=== PATIENT | female | born 1960 | race Caucasian/White ===

== ENCOUNTER → 2017-08-23 | Outpatient (CLI) | payer OTHER ==
[2017-08-23 12:11] LABS: EKG EKG PERFORMED
[2017-08-23 12:37] LABS: CH 32.7; CHCM 32.5; HCT 44.1 % (34.0-46.0); HGB 14.3 gm/dL (11.4-16.0); MCH 32.8 pg (25.0-35.0); MCHC 32.3 g/dL (31.0-37.0); MCV 101.4 fL (80.0-100.0); Macrocytosis Slight; Mean Platelet Volume 7.2; RBC 4.35 m/uL (3.80-5.40); RDW 15.7 % (11.5-15.5); WBC 6.9 k/uL (3.8-10.6)
[2017-08-23 12:42] LABS: ALT 28 U/L (9-52); AST 18 U/L (14-36); Alkaline Phosphatase 89 U/L (38-126); Anion Gap 9 mmol/L; Blood Urea Nitrogen 13 mg/dL (7-17); Calcium 9.7 mg/dL (8.4-10.2); Carbon Dioxide 26 mmol/L (22-30); Chloride 106 mmol/L (98-107); Glucose 90 mg/dL (74-99); Non-African American GFR(MDRD) >60 (>60 ml/min/1.73 sqM); Potassium 4.1 mmol/L (3.5-5.1); Sodium 141 mmol/L (137-145); Total Bilirubin 0.6 mg/dL (0.2-1.3); Total Protein 7.9 g/dL (6.3-8.2)
[2017-08-23 13:05] LABS: Partial Thromboplastin Time 25.7 sec (22.0-30.0); Prothrombin Time 10.4 sec (9.0-12.0)
[2017-08-23 13:28] LABS: Amorphous Sediment,Urine Rare /hpf; Appearance,Urine Cloudy (Clear); Bilirubin,Urine Negative (Negative); Glucose,Urine (UA) Negative (Negative); Ketones,Urine Negative (Negative); Leukocyte Esterase,Urine Large (Negative); Mucus,Urine Occasional /hpf; Nitrite,Urine Negative (Negative); PH, Urine 5.5 (5.0-8.0); Particle Count 7828; Protein,Urine Trace (Negative); RBC,Urine 3 /hpf (0-5); Specific Gravity,Urine 1.022 (1.001-1.035); Squamous Epithelial Cell,Urine 2 /hpf (0-4); UA Billing (MACRO vs. MICRO) MICRO; Urobilinogen,Urine <2.0 mg/dL (<2.0); WBC,Urine 31 /hpf (0-5)
== END | disposition home or self-care (01) ==
LOC: LABPAT 11:37
PROVIDERS: ATTEND Orthopaedic Surgery
DX: Z01.810 Encounter for preprocedural cardiovascular examination (principal); Z01.812 Encounter for preprocedural laboratory examination; Z79.01 Long term (current) use of anticoagulants
CPT/HCPCS: 36415; 80053; 81001; 85027; 85610; 85730; 87070; 93005

== ENCOUNTER 2018-07-28 21:07 | Emergency (ER) | payer OTHER ==
[2018-07-28 21:15] VITALS: PULSE 84; RESP 16; TEMP 98.9
--- NOTE | 2018-07-28 22:00 | ED ---
Abdominal Pain HPI - General Source: EMS Mode of arrival: EMS Limitations: no limitations <Muriel Xiao - Last Filed: 07/28/18 23:28> <Michelle Persaud - Last Filed: 07/29/18 03:07> - General Chief Complaint: Abdominal Pain Stated Complaint: Hernia Time Seen by Provider: 07/28/18 21:29 - History of Present Illness Initial Comments: 58-year-old female patient presents to the emergency department today with a transfer from [facility] for incarcerated abdominal hernia. Patient states that she started having pain around her umbilicus today that is radiating to the left and to the right. The patient states the area felt hard and tender. States that she did present to the emergency department underwent testing and had a CAT scan was found to have an incarcerated hernia and a transfer here for surgical evaluation. Patient states that her pain has improved after receiving medication at the other emergency department. States that leading up to that she had no difficulties with bowel movements, was passing gas, had no vomiting, nausea, fever, or chills. Patient states that she has had the umbilical hernia for a couple of years and has had no problems until today. She denies history of abdominal surgery. Patient denies any recent rash, fever, chills, shortness breath, chest pain, numbness, tingling, dizziness, weakness, hematuria, dysuria, urinary urgency, urinary frequency, headache, visual changes, or any other complaints. (Muriel Xiao) - Related Data Home Medications Medication Instructions Recorded Confirmed Hydrochlorothiazide [Hydrodiuril] 12.5 mg PO QAM 09/10/16 07/28/18 Pravastatin Sodium [Pravachol] 20 mg PO HS 09/10/16 07/28/18 Ranitidine HCl [Zantac] 150 mg PO BID 09/10/16 07/28/18 Ubidecarenone [Co Q-10] 100 mg PO DAILY 09/10/16 07/28/18 Losartan Potassium 50 mg PO QAM 08/27/17 07/28/18 Aspirin [Adult Low Dose Aspirin EC] 81 mg PO DAILY 07/28/18 07/28/18 Allergies Allergy/AdvReac Type Severity Reaction Status Date / Time sulfamethoxazole AdvReac REACTION Verified 07/28/18 22:27 [From Bactrim] WITH METHOTREXATE & FOLIC ACID trimethoprim [From Bactrim] AdvReac REACTION Verified 07/28/18 22:27 WITH METHOTREXATE & FOLIC ACID Review of Systems ROS Other: All systems not noted in ROS Statement are negative. <Muriel Xiao - Last Filed: 07/28/18 23:28> ROS Other: All systems not noted in ROS Statement are negative. <Michelle Persaud - Last Filed: 07/29/18 03:07> ROS Statement: Those systems with pertinent positive or pertinent negative responses have been documented in the HPI. Past Medical History Past Medical History: GERD/Reflux, Hyperlipidemia, Hypertension, Osteoarthritis (OA), Skin Disorder Additional Past Medical History / Comment(s): PSORIASIS (ABD AREA). Past hx. pancreatitis History of Any Multi-Drug Resistant Organisms: None Reported Additional Past Surgical History / Comment(s): bilateral total knees. Clogged sweat gland removed shoulder area?, Past Anesthesia/Blood Transfusion Reactions: No Reported Reaction Past Psychological History: No Psychological Hx Reported Smoking Status: Never smoker Past Alcohol Use History: None Reported Past Drug Use History: None Reported - Past Family History Mother Family Medical History: Cancer, Hypertension, Renal Disease Additional Family Medical History / Comment(s): skn CANCER Father Family Medical History: Hyperlipidemia, Hypertension, Renal Disease <Muriel Xiao - Last Filed: 07/28/18 23:28> General Exam Limitations: no limitations General appearance: alert, in no apparent distress, other (This is a well- developed, well-nourished adult female patient in no acute distress. Vital signs upon presentation are temperature 98.9F, pulse 84, respirations 16, blood pressure 135/70, pulse ox 95% on room air.) ENT exam: Present: normal exam, normal oropharynx, mucous membranes moist Respiratory exam: Present: normal lung sounds bilaterally. Absent: respiratory distress, wheezes, rales, rhonchi, stridor Cardiovascular Exam: Present: regular rate, normal rhythm, normal heart sounds. Absent: systolic murmur, diastolic murmur, rubs, gallop, clicks GI/Abdominal exam: Present: soft, normal bowel sounds, hernia (umbilical). Absent: distended, tenderness, guarding, rebound, rigid Neurological exam: Present: alert, oriented X3, CN II-XII intact Psychiatric exam: Present: normal affect, normal mood Skin exam: Present: warm, dry, intact, normal color. Absent: rash <Muriel Xiao - Last Filed: 07/28/18 23:28> Vital Signs 07/28/18 07/28/18 07/28/18 21:10 22:00 22:10 Temperature 98.9 F Pulse Rate 84 Respiratory 16 Rate Blood Pressure 135/70 131/67 138/72 O2 Sat by Pulse 95 95 95 Oximetry Medical Decision Making - Radiology Data Radiology results: report reviewed <Muriel Xiao - Last Filed: 07/28/18 23:28> <Michelle Persaud - Last Filed: 07/29/18 03:07> - Medical Decision Making 58-year-old female patient presented to the emergency department today as a transfer from [facility] for evaluation of an incarcerated hernia. Physical examination is unremarkable. Abdomen soft and nontender. Did review reports from [facility] which showed possible incarcerated mesenteric fat. Patient currently feeling better at this time. My attending did see and evaluate the patient felt that an emergent consult with surgery is not necessary she can follow-up outpatient. Did discuss this with the patient, shows feel comfortable being discharged at this time. Return parameters discussed in detail. She verbalizes understanding and agrees with this plan. (Muriel Xiao) I personally saw and examined the patient. I reviewed and agree with the mid- level provider findings including all diagnostic interpretations and treatment plans as written unless otherwise stated. I was present for lange portions of any procedures performed. I evaluated the patient at approximately 10:30 PM, patient received pain meds at the outside facility between 7:30 and 8 PM. Patient reports she was currently pain-free. She also reports that the swelling she noted inferior to her umbilicus had improved significantly. Patient care was discussed with Dr. Oleary states that if the patient is asymptomatic and comfortable with the plan for discharge home and outpatient follow-up that is a safe plan, however pain cannot be management the patient is not comfortable with that he will accept the patient to the observation unit. I discussed this with the patient and she states that considering that her pain has resolved at this time and that she is feeling well she is comfortable with the plan for discharge home and outpatient follow-up. Return parameters were discussed and the patient was discharged home. (Michelle Persaud) - Radiology Data CT abdomen and pelvis with intravenous contrast was obtained at [facility]. Report was reviewed in its entirety. Impression by Dr. Wheeler shows moderate-sized ventral hernia with moderately herniated mesenteric fat which appears inflamed concerning for incarcerated mesenteric fat. Correlate clinically. No herniated small bowel. Colonic diverticulosis. No evidence of acute diverticulitis. Small uterine fibroid. (Muriel Xiao) Disposition Is patient prescribed a controlled substance at d/c from ED?: No Time of Disposition: 22:55 <Muriel Xiao - Last Filed: 07/28/18 23:28> <Michelle Persaud - Last Filed: 07/29/18 03:07> Clinical Impression: Ventral hernia, Abdominal pain Disposition: HOME SELF-CARE Condition: Good Instructions: Abdominal Pain (ED), Ventral Hernia (ED) Additional Instructions: Follow-up with outpatient surgery as soon as possible for recheck. Return here immediately for any new, worsening, or concerning symptoms. Referrals: Magalis Massey DO [Primary Care Provider] - 1-2 days Vignesh Smith MD [STAFF PHYSICIAN] - 1-2 days
[2018-07-28 22:48] VITALS: BP 138/72
== END 2018-07-28 23:00 | disposition home or self-care (01) ==
LOC: EC 21:07
DX: K43.9 Ventral hernia without obstruction or gangrene (principal); K21.9 Gastro-esophageal reflux disease without esophagitis; E78.5 Hyperlipidemia, unspecified; I10 Essential (primary) hypertension; Z79.899 Other long term (current) drug therapy; Z88.2 Allergy status to sulfonamides
CPT/HCPCS: 99284

== ENCOUNTER → 2019-12-12 | Outpatient (CLI) | payer OTHER ==
[2019-12-12 15:09] LABS: Basophils # (A) 0.1 k/uL (0-0.2); Basophils % (A) 0 %; Eosinophils # (A) 0.1 k/uL (0-0.7); Eosinophils % (A) 1 %; HCT 45.2 % (34.0-46.0); Lymphocytes % (A) 22 %; MCHC 33.2 g/dL (31.0-37.0); MCV 93.6 fL (80.0-100.0); Mean Platelet Volume 7.1; Monocytes # (A) 0.6 k/uL (0-1.0); Monocytes % (A) 5 %; Neutrophils # (A) 9.8 k/uL (1.3-7.7); Neutrophils % (A) 71 %; Platelet Count 388 k/uL (150-450); RBC 4.82 m/uL (3.80-5.40); RDW 12.8 % (11.5-15.5); WBC 13.8 k/uL (3.8-10.6)
== END | disposition home or self-care (01) ==
LOC: LABPAT 14:02
PROVIDERS: ATTEND Obstetrics & Gynecology
DX: Z01.812 Encounter for preprocedural laboratory examination (principal); I10 Essential (primary) hypertension; N95.0 Postmenopausal bleeding
CPT/HCPCS: 36415; 85025; 93005

== ENCOUNTER 2019-12-18 09:28 | Day surgery (SDC) | payer OTHER ==
[2019-12-14 14:27] VITALS: BMI 23.7
[~2019-12-18 09:28] MED LIST: DEXAMETHASONE SOD PHOSPHATE 10 MG/ML 1 ML VIAL IV ONE; HYDROmorphone 0.5 MG/0.5 ML SYRINGE IVP PRN; LACTATED RINGERS 1,000 ML IV SCH; MIDAZOLAM 2 MG/2 ML VIAL IV PRN; ONDANSETRON 4 MG/2 ML VIAL IVP ONE; Pre Op ABX Message 1 EACH MISC MISCELLANE ONE; SCOPOLAMINE 1.5MG/72HR PATCH TRANSDERM ONE
[2019-12-18 10:09] VITALS: RESP 16
[2019-12-18] MEDS ORDERED: LIDOCAINE 1% (10MG/ML) FOR IV START INTRADERMA ONE (10:17)
[2019-12-18] MEDS ORDERED: LIDOCAINE 1% INJ 10MG/ML (20 ML MDV) ONE (10:43)
[2019-12-18] MEDS ORDERED: MIDAZOLAM 2 MG/2 ML VIAL ONE (10:43)
[2019-12-18] MEDS ORDERED: fentaNYL (PF) 50 MCG/ML 2 ML AMP ONE (10:43)
[2019-12-18] MEDS ORDERED: PROPOFOL 10 MG/ML 20 ML VIAL IV ONE (10:43)
[2019-12-18] MEDS ORDERED: KETOROLAC 30 MG/ML 1 ML VIAL ONE (10:43)
--- NOTE | 2019-12-18 11:20 | P.OP ---
Date of Procedure: 12/18/19 Preoperative Diagnosis: Postmenopausal bleeding Postoperative Diagnosis: Multiple endometrial polyps Procedure(s) Performed: Hysteroscopy, D&C, polypectomy Anesthesia: MAGGYA Surgeon: Natalie Perry Field Observer #1: Stated None Estimated Blood Loss (ml): 10 IV fluids (ml): 400 Urine output (ml): 25 Pathology: other (Endometrial curettings and polyps) Condition: stable Disposition: PACU Description of Procedure: Patient is brought to the operating suite where a general anesthetic is administered without difficulty. She's placed in the dorsal lithotomy position. The appropriate timeout is performed to assure proper patient and procedural identification. The cervix, vagina, perineal bodies are all prepped and draped in usual sterile fashion. Bladder is drained for approximately 25 mL of concentrated urine. Examination under anesthesia reveals a small anteverted uterus, adnexa are negative bilaterally. Weighted speculum was placed into the vagina. Anterior lip of the cervix is grasped with a double-tooth tenaculum. Uterus sounds to a depth of 9 cm in the anteverted position. There is a fair amount of cervical prolapse noted. The cervix is then gently and systematically dilated using Hanks dilators. The hysteroscope was introduced and the cavity is distended with sterile saline. The hysteroscope was then placed and the cavity is inspected. There are multiple large endometrial polyps noted throughout. The hysteroscope was removed. A medium sharp curette is used and the polyps are removed. This is done in conjunction with a polyp forcep. The hysteroscope is reintroduced and the cavity is noted to be completely clear. Tenaculum is removed from the cervix. It is clean and dry. All sponge needle and enhancement counts are correct at the end of the procedure. Patient is br ought back to the recovery room in stable condition with a blood pressure 121/64, pulse 71, 97% O2 saturation. She is given Toradol prior to leaving the operative suite. She will follow-up with me in the office in 2 weeks.
[2019-12-18 11:28] VITALS: TEMP 97.8
[2019-12-18 12:27] VITALS: BP 121/77; PULSE 82
== END 2019-12-18 13:03 | disposition home or self-care (01) ==
LOC: OR 09:28
PROVIDERS: ATTEND Obstetrics & Gynecology
DX: N84.0 Polyp of corpus uteri (principal); N95.0 Postmenopausal bleeding; E78.5 Hyperlipidemia, unspecified; K21.9 Gastro-esophageal reflux disease without esophagitis; I10 Essential (primary) hypertension; R91.8 Other nonspecific abnormal finding of lung field; I51.7 Cardiomegaly; E66.01 Morbid (severe) obesity due to excess calories; Z68.41 Body mass index [BMI] 40.0-44.9, adult; M19.90 Unspecified osteoarthritis, unspecified site; L40.9 Psoriasis, unspecified; Z98.49 Cataract extraction status, unspecified eye; Z98.890 Other specified postprocedural states; Z79.82 Long term (current) use of aspirin; Z79.899 Other long term (current) drug therapy
CPT/HCPCS: 88305; 58558; J2250; J1100; J2405; J2001; J3010; J1885; J2704